=== PATIENT | female | born 1930 | race Caucasian/White ===

== ENCOUNTER 2018-01-08 10:18 | Outpatient (CLI) | payer MEDICARE | END 2018-01-08 10:19 | disposition home or self-care (01) | LOC: BICMAMMO 10:18 | PROVIDERS: ATTEND Internal Medicine | DX: Z12.31 Encounter for screening mammogram for malignant neoplasm of breast (principal); R92.1 Mammographic calcification found on diagnostic imaging of breast; Z80.3 Family history of malignant neoplasm of breast | CPT/HCPCS: 77063; 77067 ==

== ENCOUNTER 2018-07-12 12:58 | Emergency (ER) | payer MEDICARE ==
[2018-07-12] MEDS ORDERED: Acetaminophen 500 MG TAB ONE (14:04)
--- NOTE | 2018-07-12 14:12 | RAD ---
RIGHT HIP TWO VIEWS: History: 88-year-old female with low back pain, right hip and groin pain, and weakness. FINDINGS: Right hip joint arthrosis and degenerative change. No evidence for acute fracture or dislocation. IMPRESSION: Degenerative changes without fracture or dislocation. POS: [facility]
[2018-07-12 16:16] LABS: Bilirubin Negative (Negative); Blood, Urine Negative (Negative); Clarity CLEAR (Clear); Glucose, Urine (Dipstick) >=1000 mg/dL (Negative); Leukocyte Negative (Negative); Nitrite Negative (Negative); Protein, Urine (Dipstick) Negative (Neg-Trace); Specific Gravity, Urine 1.023 (1.002-1.036); pH, Urine 5.5 (5.0-9.0)
== END 2018-07-12 16:55 | disposition home or self-care (01) ==
LOC: ERS 12:58
DX: M16.11 Unilateral primary osteoarthritis, right hip (principal); E11.9 Type 2 diabetes mellitus without complications; E78.5 Hyperlipidemia, unspecified; I10 Essential (primary) hypertension; Z79.899 Other long term (current) drug therapy; Z79.82 Long term (current) use of aspirin
CPT/HCPCS: 81003

== ENCOUNTER 2018-10-28 16:03 | Inpatient (IN) | payer MEDICARE ==
[2018-10-28 16:59] LABS: #Eosinphils 0.1 thou/uL (0.0-0.7); #Lymphocytes 1.2 thou/uL (1.20-3.40); #Monocytes 0.4 thou/uL (0.11-0.59); #Neutrophils 3.7 thou/uL (1.40-6.50); %Basophils 0.8 % (0.0-1.0); %Eosinophils 1.6 % (0.0-10.0); %Lymphocytes 21.7 % (21.0-51.0); %Monocytes 7.7 % (0.0-10.0); %Neutrophils 68.2 % (42.0-75.0); Hemoglobin 14.1 g/dL (12.0-16.0); Mean Corpuscular HGB CONC 31.8 g/dL (32.0-36.0); Mean Corpuscular Hemoglobin 29.2 pg (27.0-31.0); Mean Corpuscular Volume 91.8 fL (78.0-98.0); Mean Platelet Volume 9.9 fL (7.4-10.4); Platelet Count 112 thou/uL (130-400); RBC Distribution Width 11.4 % (11.5-14.5); Red Blood Cell (RBC) Count 4.82 mill/uL (4.20-5.40); White Blood Cell (WBC) Count 5.4 thou/uL (4.8-10.8)
--- NOTE | 2018-10-28 17:05 | RAD ---
CHEST ONE VIEW: Indication: Fall. Right hip fracture. Comparison: 06-03-13 FINDINGS/IMPRESSION: There is stable cardiomegaly. No airspace opacity, pleural effusion or pneumothorax is evident. No ac blackfeet osseous abnormality is noted. POS: [facility]
[2018-10-28] MEDS ORDERED: Milk Of Magnesia 30 ML UDCUP PO PRN (17:12)
[2018-10-28] MEDS ORDERED: Bisacodyl 10 MG SUPP PR PRN (17:12)
[2018-10-28] MEDS ORDERED: traMADol HCl 50 MG TAB PO PRN (17:12)
[2018-10-28] MEDS ORDERED: Fentanyl 100 MCG/2 ML VIAL SLOW IVP PRN (17:12)
[2018-10-28] MEDS ORDERED: Fleet Enema 133 ML BOT PR PRN (17:12)
--- NOTE | 2018-10-28 17:12 | RAD ---
RIGHT HIP TWO VIEWS: Indication: Fall with right hip pain. Comparison: 07-12-18 IMPRESSION: There is a comminuted right hip intertrochanteric fracture with displacement of the lesser trochanter fracture fragment medially and superiorly. There is moderate degenerative arthrosis of the right hip . No additional fracture is evident. POS: [facility]
[2018-10-28 17:14] LABS: ALT (SGPT) 15 U/L (8-55); AST (SGOT) 17 U/L (5-34); Albumin 3.8 g/dL (3.4-4.8); Alkaline Phosphatase 69 U/L (40-150); Anion Gap 14 mmol/L (10-20); BUN (Urea Nitrogen) 18 mg/dL (9.8-20.1); Bilirubin, Total 0.7 mg/dL (0.2-1.2); Calc. Creatinine Clearance 0 mL/min (70-130); Calcium 9.9 mg/dL (7.8-10.44); Carbon Dioxide 25 mmol/L (23-31); Chloride 100 mmol/L (98-107); Estimated GFR-MDRD 35; Globulin 2.7 g/dL (2.4-3.5); Glucose 270 mg/dL (83-110); Potassium 4.5 mmol/L (3.5-5.1); Protein, Total 6.5 g/dL (6.0-8.3); Sodium 134 mmol/L (136-145)
[2018-10-28] MEDS ORDERED: CEFAZOLIN 2 GM in Premix Bag 1 BAG IVPB SCH (17:15)
[2018-10-28 17:44] LABS: INR-International Normal Ratio 1.1; PTT 28.7 SEC (22.9-36.1); Prothrombin Time 14.5 SEC (12.0-14.7)
[2018-10-28] MEDS ORDERED: Dextrose 5% in Water 1,000 ML IV PRN (17:50)
[2018-10-28] MEDS ORDERED: Ondansetron ODT 4 MG TAB PO PRN (17:50)
[2018-10-28] MEDS ORDERED: hydrALAZINE 20 MG/ML VIAL SLOW IVP PRN (17:50)
[2018-10-28] MEDS ORDERED: Dextrose 50% Abboject 50 ML SYRINGE SLOW IVP PRN (17:50)
[2018-10-28] MEDS ORDERED: Ondansetron PF 4 MG/2 ML Vial IVP PRN (17:50)
[2018-10-28 17:56] LABS: Bilirubin Negative (Negative); Blood, Urine Negative (Negative); Clarity CLEAR (Clear); Glucose, Urine (Dipstick) >=1000 mg/dL (Negative); Leukocyte Negative (Negative); Nitrite Negative (Negative); Protein, Urine (Dipstick) Negative (Neg-Trace); Specific Gravity, Urine 1.028 (1.002-1.036); pH, Urine 5.5 (5.0-9.0)
[2018-10-28] MEDS ORDERED: traMADol HCl 50 MG TAB PO SCH (18:00)
[2018-10-28 18:27] LABS: Magnesium 1.7 mg/dL (1.6-2.6); Phosphorus 3.3 mg/dL (2.3-4.7)
[2018-10-28] MEDS ORDERED: Morphine 2 MG/ML SYRINGE ONE (19:12)
--- NOTE | 2018-10-28 19:31 | HP ---
ATTENDING TRAUMA SURGEON: Dr. Dukes. HISTORY OF PRESENT ILLNESS: This is an 88-year-old female who was out and about with her daughter when she was getting out of her daughter's car when she went to close the door, she lost her balance falling onto her right hip. The patient denies any loss of consciousness. The patient denies being weak, dizzy, having shortness of breath or chest pain prior to falling. The patient denies any recent illness. The patient lives at home and is able to get around and walk on her own. Daughter states that she saw her losing her balance and tried to help her, but did not get to her in time. The patient denies any other injuries other than a small abrasion to the left leg from the car door. PAST MEDICAL HISTORY: 1. Diabetes mellitus, on oral medication. 2. Hypertension. 3. Chronic kidney disease. PAST SURGICAL HISTORY: Hysterectomy and right wrist surgery. SOCIAL HISTORY: The patient lives at home alone, able to take care of herself. Denies any smoking history. Denies alcohol use. Denies drug use. ALLERGIES: SHE DENIES ANY KNOWN DRUG ALLERGIES. HOME MEDICATIONS: 1. Aspirin 81 mg p.o. daily. 2. Vitamin D3 2000 units daily. 3. Prozac 20 mg p.o. daily. 4. Furosemide 40 mg every morning. 5. Glipizide 10 mg p.o. 2 times a day. 6. Hydroxychloroquine 300 mg once a day. 7. Metoprolol extended release 100 mg p.o. at bedtime. 8. Simvastatin 40 mg p.o. at bedtime. 9. Januvia 100 mg p.o. once a day. REVIEW OF SYSTEMS: Ten-point review of systems is negative unless otherwise stated in the HPI. OBJECTIVE: VITAL SIGNS: Blood pressure 153/65, pulse 56, respirations 20, temperature 98.4, SpO2 of 95% on room air. GENERAL: The patient is awake, alert, lying in bed, in no distress, elderly female, well nourished. HEENT: Normocephalic and atraumatic. Trachea is midline. No cervical tenderness. Pupils are equal, round, and reactive. RESPIRATORY: Respirations are equal bilaterally. No wheezes, rales, or rhonchi. Chest movement is symmetrical with equal expansion. CARDIOVASCULAR: Regular rate and rhythm. Slightly bradycardic. Occasional PVC on teletypesetter monitor. No heart murmur noted. No pedal edema. ABDOMEN: Soft, nontender, and nondistended. Active bowel sounds. BACK: Normal inspection. EXTREMITIES: Moves all extremities. Normal sensation. Normal distal pulses x4. Tender to palpation to right hip. NEUROLOGIC: The patient is alert and oriented to person, place, and time. Normal speech. No focal motor deficits. No focal sensory deficits. LABORATORY DATA: WBC 5.4, RBC 4.82, hemoglobin 14.1, hematocrit 44.3, and platelets 112. PT 14.5, INR 1.1, APTT 28.7. Sodium 134, potassium 4.5, chloride 100, CO2 of 25, anion gap 14, BUN 18, creatinine 1.43, estimated GFR 35, glucose 270, calcium 9.9, AST 17, ALT 15, alkaline phosphatase 69. Serum total protein 6.5. Urinalysis; negative protein, high glucose, trace of ketones, negative blood, negative nitrite, negative leukocyte esterase. DIAGNOSTICS: EKG: Sinus ting with PACs. No ST changes. Hip x-ray: Comminuted right hip intertrochanteric fracture with displacement of the lesser trochanter fracture fragment medially and superiorly. Chest x-ray: There is stable cardiomegaly. There is no pleural effusion or pneumothorax. IMPRESSION: 1. Mechanical fall. 2. Right comminuted hip intertrochanteric fracture with displacement. 3. Acute traumatic pain. 4. Chronic kidney disease. 5. Hyponatremia. 6. History of diabetes type 2 and hypertension. PLAN: We will admit the patient to surgical floor. The patient will be n.p.o. after midnight. Dr. Paul will take her to the OR tomorrow for repair of her right hip. We will place the patient on a mild sliding scale. The patient with maintenance IV fluids. We will place the patient on a pain regimen. We will order a PT/OT consult for after surgery tomorrow. We will also place a rehab screen as the patient will likely need inpatient rehab. The plan has been discussed with the patient and the patient's daughter, who agree with the plan. The patient and plan will also be discussed with Dr. Dukes after this dictation. Job ID: [id number]
[2018-10-28 19:44] VITALS: BMI 31.3
--- NOTE | 2018-10-28 22:32 | CON ---
DATE OF CONSULTATION: PRINCIPAL DIAGNOSIS: Right intertrochanteric hip fracture. HISTORY OF PRESENT ILLNESS: She is a very pleasant 88-year-old woman who was riding today in a car with her daughter. She got out of the car, stumbled and landed on her right hip. PAST MEDICAL HISTORY: Positive for diabetes and hypertension. ALLERGIES: NONE. SOCIAL HISTORY: She does not smoke or drink. She does live alone. She does not walk with a cane or walker and is a community ambulator. REVIEW OF SYSTEMS: Negative for chest pain, shortness of breath, nausea, vomiting. distress if her hip is moved. She has mild shortening on external rotation of right hip. She has no palpable pulses in the right hip. She has pain with any rotation of the right hip. IMAGING: Radiographs show a three-part intertrochanteric fracture. PLAN: Intramedullary fixation with a long trochanteric femoral nail. She and her daughter understand the risks of infection, blood clots, transfusion, and . They elect to proceed with surgery. Job ID: [id number]
[2018-10-28] MEDS: Acetaminophen 500 MG TAB PO SCH (22:35)
[2018-10-28] MEDS: traMADol HCl 50 MG TAB PO SCH (22:35)
[2018-10-28] MEDS: Famotidine 20 MG TAB PO SCH (22:38)
[2018-10-28] MEDS: Sodium Chloride 0.9% 1,000 ML IV SCH (22:39)
[2018-10-29] MEDS: Acetaminophen 500 MG TAB PO SCH ×4 (00:45→17:42)
[2018-10-29] MEDS: traMADol HCl 50 MG TAB PO SCH ×3 (05:04→23:45)
[2018-10-29 05:39] LABS: #Eosinphils 0.1 thou/uL (0.0-0.7); #Lymphocytes 1.3 thou/uL (1.20-3.40); #Monocytes 0.5 thou/uL (0.11-0.59); #Neutrophils 3.8 thou/uL (1.40-6.50); %Basophils 0.5 % (0.0-1.0); %Eosinophils 1.8 % (0.0-10.0); %Lymphocytes 23.4 % (21.0-51.0); %Monocytes 8.7 % (0.0-10.0); %Neutrophils 65.6 % (42.0-75.0); Hemoglobin 12.7 g/dL (12.0-16.0); Mean Corpuscular HGB CONC 31.8 g/dL (32.0-36.0); Mean Corpuscular Hemoglobin 29.2 pg (27.0-31.0); Mean Corpuscular Volume 91.9 fL (78.0-98.0); Mean Platelet Volume 10.1 fL (7.4-10.4); Platelet Count 94 thou/uL (130-400); RBC Distribution Width 11.4 % (11.5-14.5); Red Blood Cell (RBC) Count 4.34 mill/uL (4.20-5.40); White Blood Cell (WBC) Count 5.7 thou/uL (4.8-10.8)
[2018-10-29 05:42] LABS: Phosphorus 3.7 mg/dL (2.3-4.7)
[2018-10-29 05:45] LABS: ALT (SGPT) 10 U/L (8-55); AST (SGOT) 14 U/L (5-34); Albumin 3.2 g/dL (3.4-4.8); Alkaline Phosphatase 54 U/L (40-150); Anion Gap 11 mmol/L (10-20); BUN (Urea Nitrogen) 17 mg/dL (9.8-20.1); Bilirubin, Total 0.8 mg/dL (0.2-1.2); Calc. Creatinine Clearance 46 mL/min (70-130); Calcium 9.1 mg/dL (7.8-10.44); Carbon Dioxide 24 mmol/L (23-31); Chloride 101 mmol/L (98-107); Estimated GFR-MDRD 45; Globulin 2.3 g/dL (2.4-3.5); Glucose 240 mg/dL (83-110); Magnesium 1.7 mg/dL (1.6-2.6); Potassium 4.2 mmol/L (3.5-5.1); Protein, Total 5.5 g/dL (6.0-8.3); Sodium 132 mmol/L (136-145)
[2018-10-29] MEDS ORDERED: Promethazine HCl 25 MG/ML VIAL SLOW IVP PRN ×2 (08:58→11:59)
[2018-10-29] MEDS ORDERED: Promethazine HCl 25 MG/ML VIAL IM PRN ×2 (08:58→11:59)
[2018-10-29] MEDS ORDERED: Ondansetron HCl/PF 4 MG/2 ML Vial IVP PRN ×2 (08:58→11:59)
[2018-10-29] MEDS ORDERED: Prevnar 13-Val Conj/PF 0.5 ML SYRINGE IM ONE (09:00)
[2018-10-29] MEDS ORDERED: Fentanyl 250 MCG/5 ML VIAL ONE (09:58)
[2018-10-29] MEDS ORDERED: Midazolam HCl 2 mg/2 ml Vial ONE (09:58)
[2018-10-29] MEDS: FLUoxetine HCl 20 MG CAP PO SCH (11:22)
[2018-10-29] MEDS: Hydroxychloroquine Sulfate 200 MG TAB PO SCH (11:23)
[2018-10-29] MEDS ORDERED: Cepastat Lozenges 1 LOZ PO PRN (11:46)
[2018-10-29] MEDS ORDERED: Bisacodyl 10 MG SUPP PR PRN (11:46)
[2018-10-29] MEDS ORDERED: Acetaminophen 325 MG TAB PO PRN (11:46)
[2018-10-29] MEDS ORDERED: Ondansetron ODT 4 MG TAB PO PRN (11:46)
[2018-10-29] MEDS ORDERED: Milk Of Magnesia 30 ML UDCUP PO PRN (11:46)
[2018-10-29] MEDS ORDERED: Fleet Enema 133 ML BOT PR PRN (11:46)
[2018-10-29] MEDS ORDERED: Ondansetron PF 4 MG/2 ML Vial IVP PRN (11:46)
[2018-10-29] MEDS ORDERED: Fentanyl 100 MCG/2 ML VIAL ONE ×2 (12:13→12:32)
--- NOTE | 2018-10-29 12:18 | OP ---
DATE OF PROCEDURE: 10/29/2018 PREOPERATIVE DIAGNOSIS: Right hip three-part intertrochanteric displaced fracture. POSTOPERATIVE DIAGNOSIS: Right hip three-part intertrochanteric displaced fracture. PROCEDURE PERFORMED: Closed reduction with long transfemoral nail intramedullary fixation. SENIOR SQL SERVER DATABASE DEVELOPER: Lior White PA-C ANESTHESIA: General via endotracheal tube. COMPONENTS USED: Synthes 11 mm long, 300 mm TFNA with a 95 mm lag screw and a 5 mm distal interlocking screw. ESTIMATED BLOOD LOSS: 250 mL. FINDINGS: Intertrochanteric unstable hip fracture described on radiograph. DRAINS: None. SPECIMENS: None. COMPLICATIONS: None. COUNTS: Correct. INPUT: 1 L of crystalloid. OUTPUT: 200 mL of clear yellow urine. INDICATIONS FOR SURGERY: Ingrid is an 88-year-old white female, who fell yesterday resulting in a right hip intertrochanteric fracture. She was admitted by the Trauma Team. We were consulted for definitive management of this right hip fracture. PROCEDURE IN DETAIL: After informed consent was obtained in the preoperative holding area, the patient was taken to the operative suite and received preoperative antibiotics. The patient was then positioned on the fracture table appropriately and fluoroscopy was used to perform in-line longitudinal reduction after performing reduction technique and applying appropriate forces via the fracture table. The proximal hip and thigh were then prepped and draped in the usual sterile fashion. A longitudinal incision was made 2 fingerbreadths directly above the tip of the greater trochanter noted by palpation. The IT band was incised sharply and we encountered the tip of the trochanter and we used fluoroscopy to guide the guidepin directly down the canal using a posterior two-thirds approach on the trochanter. The 15 mm entry reamer was then used to access the canal and then the appropriate size nail was then slid down using the outrigger. The depth was confirmed with fluoroscopy in AP and lateral planes. We then used the outrigger to place and appropriately position the lag screw entry hole. This was sharply incised with a knife down to IT band and the barrel of the cannula was then placed directly against the bone and the guidepin was then drilled into place and positioned appropriately. We chose a low and slightly posterior position for adequate bone stock. The lateral entry reamer was then used to breach the cortex and a lag screw was then screwed firmly into place. The reduction using the compression nut was then performed and we had good firm compression at the fracture site with good closure and near anatomic reduction. Once this was completed, the distal interlocking cannula was then used to position and appropriately place the distal interlocking screw. Prior to that, the flexible screwdriver was then used to close the anti-rotational gate to prevent derotation of the lag screw. After placing the distal interlocking screw, the outrigger was removed and final fluoroscopic examination was performed in anteroposterior and lateral plane, confirming near anatomic reduction at the fracture site, good placement of the nail inside the canal and lag screw fixation. Both wounds were copiously irrigated with normal saline. Primary closure was accomplished for the IT band with #2 Vicryl and subcuticular layer was closed with 2-0 interrupted stitches. Stainless steel gorge were used to close the 2-incision technique. A sterile dressing was applied. Procedure was terminated without complications. The patient was taken to the recovery room in stable condition. Job ID: [id number]
[2018-10-29] MEDS: Sodium Chloride 0.9% 1,000 ML IV SCH ×2 (13:31→21:39)
--- NOTE | 2018-10-29 15:07 | RAD ---
RIGHT HIP 2 VIEWS: Date: 10/29/18 HISTORY: Intraoperative films. FINDINGS: These show placement of a compression screw and long stem intramedullary alina. This is stabilizing an intertrochanteric fracture in satisfactory position. IMPRESSION: Open reduction and internal fixation of intertrochanteric fracture right hip. POS: [facility]
[2018-10-29] MEDS: Insulin Regular 300 UNITS/3 ML VIAL SC PRN ×2 (16:16→21:31)
[2018-10-29] MEDS ORDERED: Glycopyrrolate 0.2 MG/ML 5 ML SYRINGE ONE (16:59)
[2018-10-29] MEDS ORDERED: Ondansetron PF 4 MG/2 ML Vial ONE (16:59)
[2018-10-29] MEDS ORDERED: PROPOFOL 200 MG/20 ML VIAL ONE (16:59)
[2018-10-29] MEDS ORDERED: Lidocaine 1% PF 5 ML VIAL ONE (16:59)
[2018-10-29] MEDS ORDERED: Rocuronium Bromide 10 MG/ML (10ML VIAL) ONE (16:59)
[2018-10-29] MEDS ORDERED: PHENYLEPHRINE-NS 100 MCG/ML 10 ML SYRINGE ONE (16:59)
[2018-10-29] MEDS ORDERED: ePHEDrine 50 MG/ML VIAL ONE (16:59)
[2018-10-29] MEDS ORDERED: CEFAZOLIN 2 GM in Sodium Chloride 0.9% 100 ML IVPB SCH (17:00)
[2018-10-29] MEDS ORDERED: CEFAZOLIN 2 GM in Premix Bag 1 BAG IVPB SCH (17:00)
--- NOTE | 2018-10-29 17:47 | PRG ---
DATE OF SERVICE: 10/29/2018 SUBJECTIVE: This is an 88-year-old female, mechanical fall when she was getting out of her daughter's car. The patient is postop day 0, closed reduction with long transfemoral nail intramedullary fixation. The patient had no overnight events. She is just returning from the operating room and tolerating clear liquids at this time. Currently, her pain is well controlled. OBJECTIVE: VITAL SIGNS: Blood pressure 98.4, pulse 62, respirations 14, SpO2 99% on room air, blood pressure 111/70. GENERAL: The patient is awake, alert, in no distress. Reports her pain is adequate right now. RESPIRATORY: No distress, breathing is regular and unlabored. CARDIOVASCULAR: Regular rate and rhythm. ABDOMEN: Soft, nontender, nondistended. EXTREMITIES: Moves all extremities. Normal sensation distally. NEUROLOGIC: The patient GCS 15. No focal deficits. LABORATORY DATA: WBC 5.7, RBC 4.31, hemoglobin 12.7, hematocrit 39.9, platelets 94. Sodium 132, creatinine 1.14, BUN 17, glucose 240, calcium 9.1, phosphorus 3.7, magnesium 1.7, alkaline phos 5.5, albumin 3.2. DIAGNOSTICS: There are no diagnostics to review. IMPRESSION: 1. Mechanical fall, right comminuted intertrochanteric fracture. 2. Postop day 0, closed reduction with transfemoral nail intramedullary fixation. 3. Acute traumatic pain. 4. Chronic kidney disease. 5. Hyponatremia. 6. History of type 2 diabetes and hypertension. PLAN: We will increase diet as tolerated. We will place the patient on p.o. pain regimen. We will continue the patient's sliding scale. We will start Physical and Occupational therapy. Case management for rehab screen. The patient was seen with Dr. Chen today during morning rounds. Job ID: [id number]
[2018-10-29] MEDS: Ferrous Gluconate 324 MG TAB PO SCH (21:33)
[2018-10-29] MEDS: Famotidine 20 MG TAB PO SCH (21:33)
[2018-10-29] MEDS: Senokot S 8.6-50 MG TAB PO SCH (21:37)
[2018-10-30] MEDS: Acetaminophen 500 MG TAB PO SCH ×4 (01:45→17:10)
[2018-10-30] MEDS: traMADol HCl 50 MG TAB PO SCH ×3 (04:43→22:26)
[2018-10-30 04:47] LABS: Mean Corpuscular HGB CONC 32.5 g/dL (32.0-36.0); Mean Corpuscular Hemoglobin 29.5 pg (27.0-31.0); Mean Corpuscular Volume 90.8 fL (78.0-98.0); Mean Platelet Volume 9.8 fL (7.4-10.4); Platelet Count 95 thou/uL (130-400); RBC Distribution Width 11.3 % (11.5-14.5); Red Blood Cell (RBC) Count 3.38 mill/uL (4.20-5.40); White Blood Cell (WBC) Count 6.7 thou/uL (4.8-10.8)
[2018-10-30 05:04] LABS: Anion Gap 13 mmol/L (10-20); BUN (Urea Nitrogen) 13 mg/dL (9.8-20.1); Calc. Creatinine Clearance 45 mL/min (70-130); Calcium 8.7 mg/dL (7.8-10.44); Carbon Dioxide 24 mmol/L (23-31); Chloride 101 mmol/L (98-107); Estimated GFR-MDRD 43; Glucose 293 mg/dL (83-110); Potassium 4.8 mmol/L (3.5-5.1); Sodium 133 mmol/L (136-145)
[2018-10-30] MEDS: Insulin Regular 300 UNITS/3 ML VIAL SC PRN (06:13)
[2018-10-30] MEDS: Sodium Chloride 0.9% 1,000 ML IV SCH (06:15)
[2018-10-30] MEDS ORDERED: Dextrose 5% in Water 1,000 ML IV PRN (07:26)
[2018-10-30] MEDS ORDERED: Dextrose 50% Abboject 50 ML SYRINGE SLOW IVP PRN (07:26)
[2018-10-30] MEDS: FLUoxetine HCl 20 MG CAP PO SCH (08:55)
[2018-10-30] MEDS: Hydroxychloroquine Sulfate 200 MG TAB PO SCH (08:55)
[2018-10-30] MEDS: Ferrous Gluconate 324 MG TAB PO SCH ×2 (08:55→20:23)
[2018-10-30] MEDS: Enoxaparin Sodium 30 MG/0.3 ML SYRINGE SC SCH (08:56)
[2018-10-30] MEDS: Senokot S 8.6-50 MG TAB PO SCH ×2 (08:56→20:23)
[2018-10-30] MEDS: Multivitamin W/ Minerals 1 TAB PO SCH (08:56)
[2018-10-30] MEDS ORDERED: Prevnar 13-Val Conj/PF 0.5 ML SYRINGE IM ONE (09:00)
[2018-10-30] MEDS: HumaLOG 300 UNITS/3 ML VIAL SC PRN ×3 (12:03→22:26)
--- NOTE | 2018-10-30 13:08 | PRG ---
DATE OF SERVICE: 10/30/2018 SUBJECTIVE: The patient was seen this morning lying in bed, with daughter at bedside. Reported, she slept well, and pain was well controlled. She is tolerating a diabetic diet. Cox is still in place, has not had a bowel movement yet. Clear yellow urine is in Cox bag. She reports no discomfort and denies nausea, vomiting, and diarrhea at this time. Daughter asking about restarting home anti-hyperglycemic medications. This was discussed further with her. Has not worked with PT/OT yet, but reports she is willing to give it a try today. OBJECTIVE: VITAL SIGNS: Temperature 98.8, pulse 80, respirations 18, oxygen saturation 91% on room air, blood pressure 104/56. GENERAL: Well-appearing elderly female, sitting up in bed with no signs of acute distress. RESPIRATORY: Equal chest rise and fall. Breath sounds clear bilaterally. No signs of acute respiratory distress. CARDIAC: Regular rate and rhythm. No murmurs, gallops, or rubs. GI: Abdomen is soft, nontender, nondistended. Positive active bowel sounds. EXTREMITIES: Right upper extremity with dressing in place, is clean, dry, and intact. Moves all extremities spontaneously. Denies any numbness or tingling. 2+ pulses in all extremities. No significant swelling noted. LABORATORY FINDINGS: White count 6.7, hemoglobin 10.0, hematocrit 30.7, platelets 95. Sodium 133, potassium 4.8, chloride 101, carbon dioxide 24, BUN 13, creatinine 1.18, glucose 293. DIAGNOSTIC FINDINGS: There are no diagnostic findings to report. IMPRESSION: 1. Status post mechanical fall from standing. 2. Right intertrochanteric femur fracture, status post repair. 3. Acute traumatic pain. 4. History of diabetes, hypertension, and chronic kidney disease. 5. Hyponatremia, improving. PLAN: We will discontinue normal saline today as well as her Cox catheter. PT and OT to see the patient today. She will likely need to go to rehab. Rehab screen is pending at this time. We will start home statin but hold other home medications at this time. We will start free water restriction to 1.8 L. The patient can have any other liquids that she prefers without restriction. We will continue pain management as previously prescribed. The patient was seen by myself and discussed with Dr. Dukes after morning rounds. Job ID: [id number]
[2018-10-30] MEDS ORDERED: Atorvastatin Calcium 20 MG TAB PO SCH (21:00)
[2018-10-30] MEDS: Famotidine 20 MG TAB PO SCH (22:25)
[2018-10-31] MEDS: Acetaminophen 500 MG TAB PO SCH ×3 (00:24→11:28)
[2018-10-31] MEDS: traMADol HCl 50 MG TAB PO SCH ×2 (05:30→14:41)
[2018-10-31] MEDS: Sodium Chloride 0.9% 1,000 ML IV SCH (05:35)
[2018-10-31 05:59] LABS: Hemoglobin 8.9 g/dL (12.0-16.0); Mean Corpuscular HGB CONC 32.1 g/dL (32.0-36.0); Mean Corpuscular Hemoglobin 29.1 pg (27.0-31.0); Mean Corpuscular Volume 90.6 fL (78.0-98.0); Mean Platelet Volume 10.1 fL (7.4-10.4); Platelet Count 88 thou/uL (130-400); RBC Distribution Width 11.4 % (11.5-14.5); Red Blood Cell (RBC) Count 3.06 mill/uL (4.20-5.40)
[2018-10-31 06:00] LABS: #Eosinphils 0.2 thou/uL (0.0-0.7); #Lymphocytes 1.1 thou/uL (1.20-3.40); #Monocytes 0.7 thou/uL (0.11-0.59); #Neutrophils 3.8 thou/uL (1.40-6.50); %Basophils 0.2 % (0.0-1.0); %Eosinophils 2.8 % (0.0-10.0); %Lymphocytes 19.1 % (21.0-51.0); %Monocytes 12.5 % (0.0-10.0); %Neutrophils 65.3 % (42.0-75.0); Hemoglobin 8.9 g/dL (12.0-16.0); Mean Corpuscular HGB CONC 32.3 g/dL (32.0-36.0); Mean Corpuscular Hemoglobin 29.2 pg (27.0-31.0); Mean Corpuscular Volume 90.4 fL (78.0-98.0); Mean Platelet Volume 9.9 fL (7.4-10.4); Platelet Count 92 thou/uL (130-400); RBC Distribution Width 11.4 % (11.5-14.5); Red Blood Cell (RBC) Count 3.03 mill/uL (4.20-5.40); White Blood Cell (WBC) Count 5.9 thou/uL (4.8-10.8)
[2018-10-31 06:12] LABS: Phosphorus 3.1 mg/dL (2.3-4.7)
[2018-10-31 06:20] LABS: Anion Gap 10 mmol/L (10-20); BUN (Urea Nitrogen) 14 mg/dL (9.8-20.1); Calc. Creatinine Clearance 47 mL/min (70-130); Calcium 8.6 mg/dL (7.8-10.44); Carbon Dioxide 24 mmol/L (23-31); Chloride 99 mmol/L (98-107); Estimated GFR-MDRD 45; Glucose 293 mg/dL (83-110); Magnesium 1.3 mg/dL (1.6-2.6); Potassium 4.2 mmol/L (3.5-5.1); Sodium 129 mmol/L (136-145)
[2018-10-31] MEDS: HumaLOG 300 UNITS/3 ML VIAL SC PRN (06:31)
[2018-10-31] MEDS ORDERED: HumaLOG 300 UNITS/3 ML VIAL SC PRN (07:27)
[2018-10-31] MEDS ORDERED: Potassium Phosphate 30 MMOL in Sodium Chloride 0.9% 500 ML IVPB SCH (07:30)
[2018-10-31] MEDS ORDERED: Magnesium Sulfate 4 GM in Sodium Chloride 0.9% 250 ML 250 ML IVPB SCH (08:00)
[2018-10-31] MEDS: Senokot S 8.6-50 MG TAB PO SCH (08:30)
[2018-10-31] MEDS: Multivitamin W/ Minerals 1 TAB PO SCH (08:30)
[2018-10-31] MEDS: Hydroxychloroquine Sulfate 200 MG TAB PO SCH (08:30)
[2018-10-31] MEDS: Ferrous Gluconate 324 MG TAB PO SCH (08:31)
[2018-10-31] MEDS: Enoxaparin Sodium 30 MG/0.3 ML SYRINGE SC SCH (08:31)
[2018-10-31] MEDS: FLUoxetine HCl 20 MG CAP PO SCH (08:31)
[2018-10-31] MEDS ORDERED: Polyethylene Glycol 3350 17 GM Packet PO SCH (09:00)
[2018-10-31] MEDS ORDERED: Insulin Glargine 10 UNITS in Pre-Filled Syringe 1 EACH SC SCH (09:00)
[2018-10-31] MEDS ORDERED: Sodium Chloride 0.9% 1,000 ML IV SCH (10:15)
--- NOTE | 2018-10-31 13:48 | DIS ---
DATE OF ADMISSION: 10/28/2018 DATE OF DISCHARGE: 10/31/2018 ADMISSION DIAGNOSES: 1. Mechanical fall from standing and a right intertrochanteric femur fracture. 2. Hyponatremia. DISCHARGE DIAGNOSES: 1. Mechanical fall from standing and a right intertrochanteric femur fracture. 2. Hyponatremia. CONSULTING PHYSICIAN: Dr. Palu, orthopedic surgery. PROCEDURES: The patient went to the OR on 10/29 for closed reduction and closed transfemoral nail intramedullary fixation of the right femur. HOSPITAL COURSE: Ms. Ingrid Kwon is an 88-year-old female with a history of diabetes, hypertension, CKD, who represented to the hospital after a fall out of her daughter's car. She lives at home independently and her daughter is her neighbor. The patient came in via EMS and was found to have a right intertrochanteric femur fracture. She was admitted to the surgical floor and went to the OR the next day with Dr. Paul for fixation of the fracture. Postoperatively, the patient was tolerating regular diet. Pain was well controlled and she was working with Physical and Occupational Therapy. She was discharged to an acute rehab facility. DISCHARGE DISPOSITION: Acute Rehab. DISCHARGE CONDITION: Satisfactory. PHYSICAL EXAMINATION: GENERAL: Elderly female, sitting up in bed with no signs of acute distress. PULMONARY: Equal chest rise and fall. Clear breath sounds bilaterally. No signs of acute respiratory distress. CARDIAC: Regular rate and rhythm. No murmurs, gallops, or rubs. GASTROINTESTINAL: Soft, nontender, nondistended. EXTREMITIES: Right thigh tenderness with dressing clean, dry, and intact. No signs of acute trauma. 2+ pulses in all extremities. Gross motor and sensation intact in all extremities. No significant swelling noted. DISCHARGE INSTRUCTIONS: Include: 1. Activity as tolerated. Weightbearing as tolerated x4 extremities. 2. Diabetic diet, with Glucerna b.i.d. 3. She is to get occupational and physical therapy. 4. Use an incentive spirometer and a walker. DISCHARGE MEDICATIONS: Include: 1. Tylenol. 2. Throat lozenges. 3. Lovenox. 4. Fergon. 5. Fluoxetine. 6. Hydrochloroquine. 7. Milk of magnesia. 8. Metoprolol. 9. Multivitamins. 10. MiraLAX. 11. Senokot. 12. Simvastatin. 13. Tramadol. FOLLOWUP APPOINTMENTS: The patient to follow up in 3 to [address] Paul. This is merely a summary of the patient's hospitalization. For full details, please see her medical record in its entirety. Job ID: [id number]
[2018-10-31 16:43] VITALS: BP 131/78; TEMP 98.4
--- NOTE | 2018-11-01 06:42 | PQF ---
Ingrid Kwon LAYLA [id number] [facility] A [id number] CLINICAL DOCUMENTATION CLARIFICATION FORM: POST DISCHARGE DATE: 11/01/2018 ATTN: Dr. Ruano Please exercise your independent, professional judgment in responding to the clarification form. Clinical indicators are provided on the bottom of this form for your review Please check appropriate box(s): [ ] Chronic Kidney Disease (please specify stage of Chronic Kidney Disease) [ ] Stage I [ ] Stage II [ X ] Stage III [ ] Stage IV [ ] Stage V [ ] ESRD [ ] Other diagnosis (please specify) [ ] Unable to determine In addition, please specify: Present on Admission (POA): [ ] Yes [ ] No [ ] Unable to determine National Kidney Foundation Guidelines for CKD Staging Stage I Kidney damage with normal or increased GFRGFR > 90 Stage II Kidney damage with mildly decreased GFRGFR 60-89 Stage III Kidney damage with moderately decreased GFRGFR 30-59 Stage IV Kidney damage with severely decreased GFRGFR 16-29 Stage V Kidney failureGFR<15 ESRD End Stage Renal Disease On dialysis For continuity of documentation, please document condition throughout progress notes and discharge summary. Thank You. CLINICAL INDICATORS - SIGNS / SYMPTOMS / LABS History of Chronic Kidney Disease. BUN: 10/28--18. 3/--17. 3--13. 3/--14. Creatinine: 10/28--1.43. 3/ --1.14. 10/30--1.18. 3/--1.13. Estimated GFR: 10/28--35. 3/--45. 3/-- 43. 3/--45. RISK FACTORS Diabetes. Hypertension. TREATMENTS: Daily Labs. (This form is maintained as a part of the permanent medical record) 2014 [employer] All Rights Reserved Shelley [email or web address] [phone] LAINEY
--- NOTE | 2018-11-03 09:25 | EKG ---
Test Reason : Blood Pressure : / mmHG Vent. Rate : 055 BPM Atrial Rate : 055 BPM P-R Int : 190 ms QRS Dur : 088 ms QT Int : 488 ms P-R-T Axes : 084 063 045 degrees QTc Int : 466 ms Sinus bradycardia with Premature atrial complexes Otherwise normal ECG Confirmed by REBECCA YO ([id number]), manager editorial JAC ANDERSON ([id number]) on 11/03/2018 9:25:12 AM Referred By: Confirmed By:REBECCA YO
== END 2018-10-31 16:56 | DRG 481 ==
LOC: ERS 16:03 → SURG A 19:11
PROVIDERS: ADMIT Surgery; ATTEND Surgery
PROC: 0QS636Z Reposition Right Upper Femur with Intramedullary Internal Fixation Device, Percutaneous Approach (ICD-10-PCS; principal; 2018-10-29)
DX: S72.141A Displaced intertrochanteric fracture of right femur, initial encounter for closed fracture (principal); E87.1 Hypo-osmolality and hyponatremia; E11.22 Type 2 diabetes mellitus with diabetic chronic kidney disease; G89.11 Acute pain due to trauma; I12.9 Hypertensive chronic kidney disease with stage 1 through stage 4 chronic kidney disease, or unspecified chronic kidney disease; N18.3 Chronic kidney disease, stage 3 (moderate); Z79.84 Long term (current) use of oral hypoglycemic drugs; Z79.82 Long term (current) use of aspirin; Z79.899 Other long term (current) drug therapy; W18.39XA Other fall on same level, initial encounter
CPT/HCPCS: 36415; 36416; 51701; 71045; 76000; 80048; 80053; 81003; 83735; 84100; 85025; 85027; 85610; 85730; 86850; 86900; 86901; 90471; 90670; 93005; 96361; 96374; A4353; C1713; C1769; G0009; G0390; J0690; J1815; J1825; J2001; J2250; J2270; J2405; J2704; J3010; J3475; J3490; J7050

== ENCOUNTER 2019-01-09 08:00 | Outpatient (CLI) | payer MEDICARE ==
[2019-01-09] MEDS ORDERED: Sodium Chloride 0.9% 15 ML NEB ONE (09:00)
--- NOTE | 2019-01-09 16:01 | HP ---
HISTORY OF PRESENT ILLNESS: Ms. Ingrid Kwon is a very pleasant 88-year-old, accompanied by her daughter, who presents to the [facility] for evaluation of a pressure ulceration of the left buttock. The patient's daughter states that Ms. Kwon's mobility decreased noticeably after surgery for a right hip fracture in October of this year. She states that the pressure ulceration of the left buttock has been present for approximately 3 weeks. Initially, the patient's daughter who is a nurse applied a barrier cream to the wound and then began using a hydrocolloid to treat the wound when the wound failed to improve. She states that she has been changing the hydrocolloid dressing every 3 days and has been using the hydrocolloid for 1 week. The patient's daughter states that Ms. Kwon utilizes a walker for ambulation. She states that although she has a hospital bed at home, she tends to sleep in her recliner. PAST MEDICAL HISTORY: 1. Diabetes mellitus. 2. Hypertension. 3. Chronic kidney disease. PAST SURGICAL HISTORY: 1. Cataract surgery. 2. Hysterectomy. 3. ORIF of right distal radius fracture. 4. Surgery for right hip fracture. MEDICATIONS: 1. Tylenol Extra Strength. 2. Vitamin D3. 3. Iron. 4. Fluoxetine. 5. Glipizide. 6. Hydroxychloroquine. 7. Metoprolol. 8. Simvastatin. 9. Januvia. 10. Tramadol. ALLERGIES: NO KNOWN DIAGNOSED ALLERGIES. SOCIAL HISTORY: Social history is negative for tobacco or EtOH use. FAMILY HISTORY: Family history is significant for diabetes mellitus. The patient's mother was diagnosed with diabetes mellitus. Family history is also significant for coronary artery disease. The patient's mother and father were both diagnosed with coronary artery disease. PHYSICAL EXAMINATION: VITAL SIGNS: Temperature 97.7, pulse 60, respirations 24, blood pressure 152/69. Accu-Chek 316. GENERAL: An 88-year-old female, lying on table in examination room, in no acute distress. HEENT: Normocephalic and atraumatic. NECK: No nuchal rigidity. CHEST: Clear to auscultation. CV: Regular rate and rhythm. ABDOMEN: Soft. EXTREMITIES: No clubbing or cyanosis. NEUROLOGIC: Grossly nonfocal. BACK: An ulceration over the left medial buttock is present, which measures approximately 1.8 x 1.4 cm. Nonviable tissue present within the wound margins was debrided with an excisional full-thickness debridement. No purulent drainage is associated with the wound. No cellulitis of the left buttock is appreciated. No maceration of the skin of the periwound is noted. ASSESSMENT AND PLAN: 1. Pressure ulceration of left medial buttock as described above. Hydrocolloid dressing changes will be continued every 3 days after cleansing and irrigation with the assistance of Home Health. Calmoseptine will also be applied at the time of dressing changes, specifically to the skin of the right buttock. The patient and her daughter understand and are in agreement with the preceding treatment plan. The patient's daughter states that she will contact the Wound Center in order to schedule the patient's followup appointment. 2. Diabetes mellitus. The patient's Accu-Chek in clinic today is 316. The patient and her daughter have been told that for optimal wound healing, the patient's blood glucoses should remain below 150. 3. Hypertension. 4. Chronic kidney disease. Job ID: [id number]
== END 2019-01-09 08:01 | disposition home or self-care (01) ==
LOC: WCC 08:00
PROVIDERS: ATTEND Family Medicine
DX: L89.329 Pressure ulcer of left buttock, unspecified stage (principal); E11.9 Type 2 diabetes mellitus without complications; I12.9 Hypertensive chronic kidney disease with stage 1 through stage 4 chronic kidney disease, or unspecified chronic kidney disease; N18.9 Chronic kidney disease, unspecified
CPT/HCPCS: 36416; A4218